=== PATIENT | male | born 1995 | race Caucasian/White ===

== ENCOUNTER 2016-12-26 01:11 | Emergency (ER) | payer OTHER ==
[2016-12-26 01:25] VITALS: TEMP 97.5
--- NOTE | 2016-12-26 01:25 | EDPHY ---
H & P Source: Patient, Police, EMS - Personal History Tetanus Vaccine Date: 2013 - Medical/Surgical History Hx Asthma: Yes Hx Chronic Respiratory Disease: No Hx Diabetes: No Hx Cardiac Disease: No Hx Renal Disease: No Hx Cirrhosis: No Hx Alcoholism: No Hx HIV/AIDS: No Hx Splenectomy or Spleen Trauma: No - Social History Smoking Status: Never smoked HPI/ROS: HPI CHIEF COMPLAINT: Alcohol intoxication, depression, suicidal ideation, M1 hold by police HISTORY OF PRESENT ILLNESS: This patient is a 21-year-old male, otherwise healthy no significant medical history except for anxiety, presents to the emergency room on M1 hold by police. He got into an argument with his friend. He was drinking alcohol. States he had 4 drinks. Became more depressed and had thoughts of suicide. Plan was to run out in front of a bus. He presents emergency room in no acute distress., cooperative. Past Medical History: Anxiety Past Surgical History: Denies recent surgery Social History: Admits to alcohol this evening. Denies illicit drugs or tobacco. Family History: Noncontributory ROS REVIEW OF SYSTEMS: A comprehensive 10 point review of systems is otherwise negative aside from elements mentioned in the history of present illness. Exam Constitutional tearful, smells of alcohol, triage nursing summary reviewed, vital signs reviewed, awake/alert. Eyes normal conjunctivae and sclera, EOMI, PERRLA. HENT normal inspection, atraumatic, moist mucus membranes, no epistaxis, neck supple/ no meningismus, no raccoon eyes. Respiratory clear to auscultation bilaterally, normal breath sounds, no respiratory distress, no wheezing. Cardiovascular rate normal, regular rhythm, no murmur, no edema, distal pulses normal. Gastrointestinal soft, non-tender, no rebound, no guarding, normal bowel sounds, no distension, no pulsatile mass. Genitourinary no CVA tenderness. Musculoskeletal no midline vertebral tenderness, full range of motion, no calf swelling, no tenderness of extremities, no meningismus, good pulses, neurovascularly intact. Skin pink, warm, & dry, no rash, skin atraumatic. Neurologic awake, alert and oriented x 3, AAOx3, moves all 4 extremities equally, motor intact, sensory intact, CN II-XII intact, normal cerebellar, normal vision, normal speech. Psychiatric normal mood/affect. Heme/Lymph/Immune no lymphadenopathy. Differential Diagnosis: Includes but is not limited to in a particular order acute anxiety, depression, alcohol intoxication Medical Decision Making: Plan for this patient is on M1 hold, patient be given 1 mg p.o. Ativan for anxiety. Blood draw for medical clearance and then once sober will need mental health evaluation. Re-evaluation: 0640AM: No acute events overnight. Resting comfortably. Becoming sober and then needs mental health evaluation. Patient signed over at 7:00 a.m. shift change to Dr. Moreira. (Christopher Bella) Constitutional: Initial Vital Signs Temperature (C) 36.4 C 12/26/16 01:23 Heart Rate 102 H 12/26/16 01:23 Respiratory Rate 30 H 12/26/16 01:23 Blood Pressure 154/78 H 12/26/16 01:23 O2 Sat (%) 99 12/26/16 01:23 O2 Delivery Mode Room Air Allergies/Adverse Reactions: No Known Allergies Allergy (Unverified 01/05/15 17:07) Home Medications: Medication Instructions Recorded Lexapro 12/26/16 Singulair 12/26/16 Medical Decision Making Other Provider: Care assumed at 6:30 a.m. with plan for psychiatric evaluation when clinically sober. 954: Patient had psychiatric evaluation and is the recommendation of the talent consultant psychiatrist Dr. Belle, to lift the hold, and discharge the patient with outpatient follow-up. (Ajith Moreira) - Data Points Laboratory Results: Laboratory Results 12/26/16 01:30 12/26/16 01:30 12/26/16 12/26/16 12/26/16 01:30 01:30 01:30 WBC 8.01 10^3/uL 10^3/uL (3.80-9.50) RBC 4.94 10^6/uL 10^6/uL (4.40-6.38) Hgb 15.3 g/dL g/dL (13.7-17.5) Hct 45.3 % % (40.0-51.0) MCV 91.7 fL fL (81.5-99.8) MCH 31.0 pg pg (27.9-34.1) MCHC 33.8 g/dL g/dL (32.4-36.7) RDW 12.2 % % (11.5-15.2) Plt Count 238 10^3/uL 10^3/uL (150-400) MPV 10.7 fL fL (8.7-11.7) Neut % (Auto) 42.5 % % (39.3-74.2) Lymph % (Auto) 44.8 % % (15.0-45.0) [place] % (Auto) 9.0 % % (4.5-13.0) Eos % (Auto) 2.5 % % (0.6-7.6) Baso % (Auto) 0.7 % % (0.3-1.7) Nucleat RBC Rel Count 0.0 % % (0.0-0.2) Absolute Neuts (auto) 3.40 10^3/uL 10^3/uL (1.70-6.50) Absolute Lymphs (auto) 3.59 10^3/uL H 10^3/uL (1.00-3.00) Absolute Monos (auto) 0.72 10^3/uL 10^3/uL (0.30-0.80) Absolute Eos (auto) 0.20 10^3/uL 10^3/uL (0.03-0.40) Absolute Basos (auto) 0.06 10^3/uL 10^3/uL (0.02-0.10) Absolute Nucleated RBC 0.00 10^3/uL 10^3/uL (0-0.01) Immature Gran % 0.5 % % (0.0-1.1) Immature Gran # 0.04 10^3/uL 10^3/uL (0.00-0.10) Sodium 148 mEq/L H mEq/L (134-144) Potassium 3.6 mEq/L mEq/L (3.5-5.2) Chloride 107 mEq/L mEq/L (97-110) Carbon Dioxide 20 mEq/l L mEq/l (22-31) Anion Gap 21 mEq/L H mEq/L (8-16) BUN 15 mg/dL mg/dL (7-23) Creatinine 0.8 mg/dL mg/dL (0.7-1.3) Estimated GFR > 60 Glucose 107 mg/dL H mg/dL (70-100) Calcium 9.9 mg/dL mg/dL (8.5-10.4) Urine Opiates Screen NEGATIVE (NEGATIVE) Urine Barbiturates NEGATIVE (NEGATIVE) Ur Phencyclidine Scrn NEGATIVE (NEGATIVE) Ur Amphetamine Screen NEGATIVE (NEGATIVE) U Benzodiazepines Scrn NEGATIVE (NEGATIVE) Urine Cocaine Screen NEGATIVE (NEGATIVE) U Marijuana (THC) Screen NEGATIVE (NEGATIVE) Ethyl Alcohol 124 mg/dL H mg/dL (0-10) Medications Given: Discontinued Medications Lorazepam (Ativan) 1 mg PO ONCE ONE Stop: 12/26/16 01:37 Last Admin: 12/26/16 01:46 Dose: 1 mg Departure - Departure Disposition: Home, Routine, Self-Care Clinical Impression: Alcoholic intoxication Qualifiers: Complication of substance-induced condition: uncomplicated Qualified Code(s): F10.920 - Alcohol use, unspecified with intoxication, uncomplicated Condition: Good Instructions: Alcohol Intoxication (ED) Referrals: NONE *PRIMARY CARE P,. [Primary Care Provider] - As per Instructions [facility],. [Clinic] - As per Instructions
[2016-12-26] MEDS ORDERED: LORazepam 1 MG TAB PO ONE (01:36)
[2016-12-26 01:54] LABS: % IMMATURE GRANULYOCYTES 0.5 % (0.0-1.1); ABSOLUTE IMMATURE GRANULOCYTES 0.04 10^3/uL (0.00-0.10); ADD DIFF? NO; ADD MORPH? NO; ADD SCAN? NO; ATYPICAL LYMPHOCYTE FLAG 20 (0-99); FRAGMENT RBC FLAG 0 (0-99); HEMATOCRIT 45.3 % (40.0-51.0); HEMOGLOBIN 15.3 g/dL (13.7-17.5); LEFT SHIFT FLG 0 (0-99); LIPEMIA HEMOLYSIS FLAG 90 (0-99); MEAN CELL HEMOGLOBIN CONCENTR. 33.8 g/dL (32.4-36.7); MEAN CELL VOLUME 91.7 fL (81.5-99.8); MEAN PLATELET VOLUME 10.7 fL (8.7-11.7); PLATELET CLUMPS FLAG 0 (0-99); PLATELET COUNT 238 10^3/uL (150-400); RED BLOOD CELL COUNT 4.94 10^6/uL (4.40-6.38); RED CELL DISTRIBUTION WIDTH 12.2 % (11.5-15.2)
[2016-12-26 02:07] LABS: ANION GAP 21 mEq/L (8-16); CALCIUM 9.9 mg/dL (8.5-10.4); CARBON DIOXIDE 20 mEq/l (22-31); CHLORIDE 107 mEq/L (97-110); CREATININE 0.8 mg/dL (0.7-1.3); ETHANOL SERUM 124 mg/dL (0-10); GLOMERULAR FILTRATION RATE > 60; GLUCOSE 107 mg/dL (70-100); POTASSIUM 3.6 mEq/L (3.5-5.2); SODIUM 148 mEq/L (134-144)
[2016-12-26 08:07] VITALS: RESP 16
[2016-12-26 10:07] VITALS: BP 97/84; PULSE 88; O2SAT 96
== END 2016-12-26 10:21 | disposition home or self-care (01) ==
LOC: EDUNIT#
DX: F10.920 Alcohol use, unspecified with intoxication, uncomplicated (principal); J45.909 Unspecified asthma, uncomplicated
CPT/HCPCS: 80305; G0480